=== PATIENT | male | born 1975 | race Hispanic/Latino ===

== ENCOUNTER 2017-06-25 12:02 | Emergency (ER) | payer MEDICAID, OTHER ==
[2017-06-25 12:02] VITALS: BMI 25.7
--- NOTE | 2017-06-25 12:50 | C.PDOC ---
History Of Present Illness 41 yo male w/PMHx of bipolar come in for psych evaluation. As per mother," noted he expressed suicidal ideation". As per pt, was not on psych medication for past few months " due to insurance problem". At present time, pt appears appropriate, not in any apparent distress, denies suicidal ideation or attempts. Pt denies any active physical complaints. Time Seen by Provider: 06/25/17 12:11 Chief Complaint (Nursing): Psychiatric Evaluation History Per: Patient Past Medical History Reviewed: Historical Data, Nursing Documentation, Vital Signs Vital Signs: Last Vital Signs Temp 98.3 F 06/25/17 12:39 Pulse 81 06/25/17 12:39 Resp 20 06/25/17 12:39 BP 129/85 06/25/17 12:39 Pulse Ox 98 06/25/17 12:49 - Medical History PMH: Bipolar Disorder, Depression Denies: Diabetes, Hepatitis, HIV, HTN, Chronic Kidney Disease, Seizures, Sexually Transmitted Disease - [facility] Procedures INFLUENZA VACCINATION (09/06/14) OTHER GROUP THERAPY (01/30/13) PSYCHIAT DRUG THERAP NEC (09/06/14) VACCINATION NEC (09/06/14) Family History: States: No Known Family Hx - Social History Hx Tobacco Use: Yes Hx Alcohol Use: No Hx Substance Use: No - Immunization History Hx Tetanus Toxoid Vaccination: No Hx Influenza Vaccination: No Hx Pneumococcal Vaccination: No Review Of Systems Except As Marked, All Systems Reviewed And Found Negative. Constitutional: Negative for: Fever, Chills Eyes: Negative for: Vision Change ENT: Negative for: Nose Discharge, Throat Pain, Throat Swelling Cardiovascular: Negative for: Chest Pain, Palpitations, Edema, Light Headedness Respiratory: Negative for: Cough, Shortness of Breath, Sputum, Wheezing Gastrointestinal: Negative for: Nausea, Vomiting, Abdominal Pain, Diarrhea Genitourinary: Negative for: Dysuria, Incontinence Musculoskeletal: Negative for: Neck Pain, Back Pain Skin: Negative for: Rash Neurological: Negative for: Weakness, Numbness, Altered Mental Status, Headache , Dizziness Psych: Positive for: Suicidal ideation Physical Exam - Physical Exam Appears: Well, No Acute Distress Skin: Normal Color, Warm, Dry, No Rash Head: Normacephalic Eye(s): bilateral: PERRL Nose: No Flaring, No Discharge Oral Mucosa: Moist Throat: No Drooling Neck: Trachea Midline, Supple Cardiovascular: Rhythm Regular, No Murmur, No JVD Respiratory: No Decreased Breath Sounds, No Accessory Muscle Use, No Stridor, No Wheezing Gastrointestinal/Abdominal: Soft, No Tenderness, No Distention, No Guarding Back: Normal Inspection Extremity: Normal ROM, No Deformity, No Swelling Neurological/Psych: Oriented x3, Normal Speech, Normal Motor, Normal Sensation, Normal Reflexes ED Course And Treatment O2 Sat by Pulse Oximetry: 98 Pulse Ox Interpretation: Normal Progress Note: Pt was seen by travelers' aid worker Mandi, case discussed with psych-on- call and discharge with outpt f/u on 07/03/17 scheduled. As per Mandi, rx was faxed by [facility] to pt's pharmacy. On re-eval, pt is afebrile, hemodynamicaly stable. Non-toxic. Appropriate, denies suicadal or homocidal ideation. Pt is stable for discharge and outpt f/u now. Pt agrees with plan. Disposition Counseled Patient/Family Regarding: Diagnosis, Need For Followup - Disposition Referrals: [facility] at [facility] [Outside] Puneet Bhatia MD [Staff Provider] - Disposition: HOME/ ROUTINE Disposition Time: 14:18 Condition: STABLE Additional Instructions: FOLLOW UP WITH PSYCHIATRIST ON 07/03/17 AT 9 AM SCHEDULED FOR FURTHER EVALUATION AND TREATMENT TAKE MEDICATION PRESCRIBED RETURN TO ED IF ANY WORSENING OR NEW CHANGES. Instructions: Bipolar Disorder (ED) Forms: [facility] (Spanish) - Clinical Impression Clinical Impression: Bipolar disorder
[2017-06-25 14:19] VITALS: BP 146/84; PULSE 83; RESP 16; TEMP 98.4
[2017-06-25 14:21] VITALS: O2SAT 98
== END 2017-06-25 14:29 | disposition home or self-care (01) ==
LOC: C.ER 12:02
DX: F31.9 Bipolar disorder, unspecified (principal)